=== PATIENT | female | born 1965 | race Caucasian/White ===

== ENCOUNTER 2024-07-20 20:32 | Inpatient (IN) | payer MEDICAID ==
[~2024-07-20] VITALS: Ht 154.9 cm; Wt 97.3 kg
[2024-07-20 21:45] VITALS: RESP 24; O2SAT 98
[2024-07-20 21:59] LABS: Basophils # (auto) 0 10 ^3/uL (0-0.2); Basophils % (auto) 0.5 % (0.0-2.0); Eosinophils # (auto) 0.3 10 ^3/uL (0-0.8); Eosinophils % (auto) 3.9 % (0.0-7.0); Hematocrit 41.1 % (36.0-46.0); Hemoglobin 13.1 g/dL (12.2-16.2); Lymphocytes # (auto) 1.9 10 ^3/uL (0.4-5.4); Lymphocytes % (auto) 22.9 % (10.0-50.0); Mean Corpuscular Hemoglobin 26.4 pg (28.0-32.0); Mean Corpuscular Hgb Conc. 31.9 g/dL (32.0-36.0); Mean Corpuscular Volume 82.8 fL (80.0-100.0); Monocytes % (auto) 12.4 % (0.0-12.0); Neutrophils # (auto) 4.9 10 ^3/uL (1.6-8.6); Neutrophils % (auto) 60.3 % (37.0-80.0); Nucleated Red Blood Cells % 0.1 %; Platelet Count (auto) 210 10^3/uL (140-450); Red Blood Cells 4.97 10^6/uL (4.0-5.20); Red Cell Distribution Width 17.6 % (11.8-14.3); White Blood Cell 8.1 10^3/uL (4.4-10.8)
[2024-07-20 22:16] LABS: COVID19 ANTIGEN SOFIA FIA NEGATIVE (NEGATIVE); Rapid Influenza A Negative (Negative); Rapid Influenza B Negative (Negative)
[2024-07-20 22:22] LABS: Albumin 4.1 g/dL (3.2-4.8); Alkaline Phosphatase 71 U/L (46-116); Anion Gap 6 (5-15); Aspartate Aminotransferase 13 U/L (13-40); BUN/Creatinine Ratio 13.1 (10.0-20.0); Bilirubin, Total 0.5 mg/dL (0.2-1.0); Blood Urea Nitrogen 8 mg/dL (9-23); Calcium 9.5 mg/dL (8.7-10.4); Carbon Dioxide 31 mmol/L (20-31); Chloride 105 mmol/L (98-107); Glucose 102 mg/dL (74-106); Potassium 3.8 mmol/L (3.5-5.1); Sodium 142 mmol/L (136-145); Total Protein 7.5 g/dL (5.7-8.2)
[2024-07-20 22:28] LABS: Alanine Aminotransferase < 9 U/L (7-40)
[2024-07-21] VITALS (17 sets, daily range): BP systolic 101–126; BP diastolic 57–69; PULSE 52–74; RESP 15–26; TEMP 97.6–98.6; O2SAT 95–98
[2024-07-21] MEDS ORDERED: NITROGLYCERIN 0.4 MG SL TAB SL PRN
[2024-07-21] MEDS ORDERED: MORPHINE SULFATE INJ 2 MG/ml SYRG IV PRN
[2024-07-21] MEDS ORDERED: ONDANSETRON HCL 4 MG/2 ML VIAL IV PRN (00:45)
[2024-07-21] MEDS ORDERED: ACETAMINOPHEN 325 MG TAB PO PRN (00:45)
[2024-07-21 01:36] LABS: LDL Cholesterol 68 mg/dL (< 100); Triglycerides 81 mg/dL (< 150)
[2024-07-21 01:38] LABS: Cholesterol 119 mg/dL (< 200); HDL Cholesterol 41 mg/dL (40-59)
[2024-07-21] MEDS ORDERED: ALBUTEROL SULF 2.5 MG/0.5ML(0.5%) NEB SOLN NEB PRN (06:15)
[2024-07-21] MEDS: ASPirin 81 mg TAB PO SCH (09:50)
[2024-07-21] MEDS: ENOXAPARIN SOD 40 MG/0.4 ML SYRINGE SC SCH (09:50)
[2024-07-21] MEDS: FUROSEMIDE 20 MG/2 ML VIAL IV STA (11:40)
[2024-07-21] MEDS: IODIXANOL 320MG/ML 100ML BTL IV ONE (12:32)
[2024-07-21] MEDS: HEPARIN IN NS 1000Units/500mL 1,500 ML ONE (12:32)
[2024-07-21] MEDS: fentaNYL CITRATE 100 MCG/2 ML VL ONE (13:14)
[2024-07-21] MEDS: SODIUM CHL 0.9% 0 ML ONE (13:14)
[2024-07-21] MEDS: ANGIOMAX 250 MG VIAL IV ONE (13:14)
[2024-07-21] MEDS: VERAPAMIL 2.5MG/ML INJ 2ML VIAL IV ONE (13:14)
[2024-07-21] MEDS: HEPARIN SODIUM (PORCINE) 5000 UNITS/ML 1ML VIAL ONE (13:14)
[2024-07-21] MEDS: MIDAZOLAM HCL 2MG/2ML 2ml VIAL (1mg/ml) ONE (13:14)
[2024-07-21] MEDS: LIDOCAINE 2%HCL (LOCAL ANESTH.) INJ 10ml MDV ONE (13:15)
[2024-07-21] MEDS: CARVEDILOL 3.125 MG TAB PO ONE (15:30)
[2024-07-21] MEDS ORDERED: SERT-206 PO (17:57)
[2024-07-21] MEDS ORDERED: OLAN1TAB19 PO (17:57)
[2024-07-21] MEDS ORDERED: ASPI1TAB20 PO (17:57)
[2024-07-21 17:58] LABS: Basophils # (auto) 0 10 ^3/uL (0-0.2); Basophils % (auto) 0.4 % (0.0-2.0); Eosinophils # (auto) 0.3 10 ^3/uL (0-0.8); Hematocrit 40.8 % (36.0-46.0); Hemoglobin 13.1 g/dL (12.2-16.2); Lymphocytes # (auto) 1.1 10 ^3/uL (0.4-5.4); Lymphocytes % (auto) 15.3 % (10.0-50.0); Mean Corpuscular Hgb Conc. 32.1 g/dL (32.0-36.0); Mean Corpuscular Volume 83.9 fL (80.0-100.0); Monocytes # (auto) 0.7 10 ^3/uL (0-1.3); Monocytes % (auto) 10.2 % (0.0-12.0); Neutrophils # (auto) 5.1 10 ^3/uL (1.6-8.6); Neutrophils % (auto) 70.1 % (37.0-80.0); Nucleated Red Blood Cells % 0.2 %; Platelet Count (auto) 182 10^3/uL (140-450); Red Blood Cells 4.87 10^6/uL (4.0-5.20); Red Cell Distribution Width 17.6 % (11.8-14.3); White Blood Cell 7.3 10^3/uL (4.4-10.8)
[2024-07-21 18:08] LABS: Chloride 105 mmol/L (98-107); Potassium 3.7 mmol/L (3.5-5.1); Sodium 144 mmol/L (136-145)
[2024-07-21 18:09] LABS: Anion Gap 4 (5-15); Carbon Dioxide 35 mmol/L (20-31)
[2024-07-21 18:10] LABS: Calcium 9.8 mg/dL (8.7-10.4)
[2024-07-21 18:14] LABS: Glucose 77 mg/dL (74-106)
[2024-07-21 18:15] LABS: BUN/Creatinine Ratio 15.6 (10.0-20.0); Blood Urea Nitrogen 7 mg/dL (9-23); Magnesium 1.8 mg/dL (1.6-2.6)
[2024-07-21 18:46] LABS: INR 1.18 (0.9-1.15); Partial Thromboplastin Time 27.7 SEC (24.5-34.5); Prothrombin Time 12.4 sec (9.3-11.8)
[2024-07-21] MEDS ORDERED: ATORVASTATIN 20 MG TAB PO SCH (22:00)
[2024-07-21] MEDS: CARVEDILOL 3.125 MG TAB PO SCH (22:14)
[2024-07-21] MEDS: ATORVASTATIN 20 MG TAB PO SCH (22:15)
[2024-07-21] MEDS: TEMAZEPAM 15 MG CAP PO PRN (22:16)
[2024-07-22] VITALS (7 sets, daily range): BP systolic 103–134; BP diastolic 60–81; PULSE 54–86; RESP 16–20; TEMP 97.5–98.4; O2SAT 92–98
[2024-07-22 07:37] LABS: Chloride 102 mmol/L (98-107); Potassium 3.7 mmol/L (3.5-5.1); Sodium 143 mmol/L (136-145)
[2024-07-22 07:38] LABS: Anion Gap 4 (5-15); Calcium 9.6 mg/dL (8.7-10.4); Carbon Dioxide 37 mmol/L (20-31)
[2024-07-22 07:44] LABS: Blood Urea Nitrogen 11 mg/dL (9-23); Glucose 103 mg/dL (74-106)
[2024-07-22 07:47] LABS: Basophils # (auto) 0 10 ^3/uL (0-0.2); Basophils % (auto) 0.3 % (0.0-2.0); Eosinophils # (auto) 0.3 10 ^3/uL (0-0.8); Eosinophils % (auto) 4.6 % (0.0-7.0); Hematocrit 41.2 % (36.0-46.0); Hemoglobin 13.3 g/dL (12.2-16.2); Lymphocytes # (auto) 1.2 10 ^3/uL (0.4-5.4); Lymphocytes % (auto) 16.9 % (10.0-50.0); Mean Corpuscular Hemoglobin 27.2 pg (28.0-32.0); Mean Corpuscular Hgb Conc. 32.3 g/dL (32.0-36.0); Monocytes # (auto) 0.7 10 ^3/uL (0-1.3); Monocytes % (auto) 9.7 % (0.0-12.0); Neutrophils # (auto) 4.7 10 ^3/uL (1.6-8.6); Neutrophils % (auto) 68.5 % (37.0-80.0); Nucleated Red Blood Cells % 0.1 %; Platelet Count (auto) 196 10^3/uL (140-450); Red Blood Cells 4.91 10^6/uL (4.0-5.20); Red Cell Distribution Width 17.2 % (11.8-14.3); White Blood Cell 6.9 10^3/uL (4.4-10.8)
[2024-07-22] MEDS ORDERED: CARV6.2517 PO (08:49)
[2024-07-22] MEDS ORDERED: ASPI-628 PO (08:49)
[2024-07-22] MEDS ORDERED: ATOR-507 PO (08:49)
[2024-07-22] MEDS ORDERED: LISI20TA56 PO (08:49)
[2024-07-22] MEDS: MAGNESIUM SULFATE 1GM/100ML 100 ML IV ONE (11:20)
[2024-07-22] MEDS: ASPirin 81 mg TAB PO SCH (11:21)
[2024-07-22] MEDS: FUROSEMIDE 20 MG/2 ML VIAL IV SCH (11:22)
[2024-07-22 14:56] LABS: Base Excess 10.7 mmol/L (-2.0-3.0)
== END 2024-07-22 18:50 | disposition home or self-care (01) | DRG 192 ==
LOC: EDBD 20:32 → ER 20:32 → TELE 23:48 → TELE-CENTR 23:48
PROVIDERS: ADMIT Nurse Practitioner; ATTEND Family Medicine
PROC: 4A023N7 Measurement of Cardiac Sampling and Pressure, Left Heart, Percutaneous Approach (ICD-10-PCS; principal; 2024-07-21)
PROC: B211YZZ Fluoroscopy of Multiple Coronary Arteries using Other Contrast (ICD-10-PCS; 2024-07-21)
DX: I11.0 Hypertensive heart disease with heart failure (principal); I21.4 Non-ST elevation (NSTEMI) myocardial infarction; Q24.5 Malformation of coronary vessels; I50.31 Acute diastolic (congestive) heart failure; F20.9 Schizophrenia, unspecified; Z20.822 Contact with and (suspected) exposure to COVID-19; I25.10 Atherosclerotic heart disease of native coronary artery without angina pectoris; F32.A Depression, unspecified; Z79.82 Long term (current) use of aspirin; Z87.01 Personal history of pneumonia (recurrent); Z79.899 Other long term (current) drug therapy
CPT/HCPCS: 36415; 36600; 70450; 71045; 80048; 80053; 80061; 82805; 83735; 83880; 84443; 84484; 85025; 85379; 85610; 85730; 87426; 87804; 93005; 93458; 99152; G0378; J2003; J2250; Q9967